=== PATIENT | male | born 1980 | race Caucasian/White ===

== ENCOUNTER 2022-01-26 18:44 | Emergency (ER) | payer OTHER, BC ==
[2022-01-26] MEDS ORDERED: Cephalexin 250 MG CAP ONE (19:17)
[2022-01-26] MEDS ORDERED: Sulfameth/Trimethoprim DS 800-160mg TAB ONE (19:17)
[2022-01-26] MEDS ORDERED: Lorazepam 1 MG TAB ONE (19:40)
[2022-01-26] MEDS ORDERED: Lidocaine 1% w/Epinephrine 1:100K 20 ML VIAL ONE (20:12)
[2022-01-26] MEDS ORDERED: Bacitracin 1 PK ONE (20:36)
== END 2022-01-26 20:47 | disposition home or self-care (01) ==
LOC: ERS 18:44
DX: S61.452A Open bite of left hand, initial encounter (principal); Z23 Encounter for immunization; W54.0XXA Bitten by dog, initial encounter
CPT/HCPCS: 12001